=== PATIENT | male | born 1990 | race African-American/Black ===

== ENCOUNTER 2016-05-25 09:11 | Emergency (ER) | payer OTHER ==
[~2016-05-25] VITALS: Ht 167.6 cm; Wt 68.0 kg
[2016-05-25 09:12] VITALS: BP 112/64; PULSE 70; RESP 14; TEMP 97.9; O2SAT 97
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
[2016-05-25] MEDS ORDERED: SILVER SULFADIAZINE 1% CR 50 GM JAR TOPICAL ONE (11:15)
[2016-05-25] MEDS ORDERED: TETANUS/DIPHTHERIA TOXOID ADULT 0.5 ML VIAL IM ONE (11:15)
[2016-05-25] MEDS ORDERED: CEPH-460 PO (11:53)
[2016-05-25] MEDS ORDERED: CYCL1TAB29 PO (11:53)
[2016-05-25] MEDS ORDERED: SILV1CRE20 TOPICAL (11:53)
[2016-05-25] MEDS ORDERED: IBUP800T23 PO (11:53)
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
[2016-05-25] MEDS ORDERED: TRAM50TA PO (11:54)
== END 2016-05-25 12:11 | disposition home or self-care (01) ==
LOC: NEPK 09:11
DX: M54.5 Low back pain (principal); S60.512A Abrasion of left hand, initial encounter; S60.511A Abrasion of right hand, initial encounter; S50.812A Abrasion of left forearm, initial encounter; V29.9XXA Motorcycle rider (driver) (passenger) injured in unspecified traffic accident, initial encounter
CPT/HCPCS: 72100; 90471; 90714